=== PATIENT | female | born 1950 | race Caucasian/White ===

== ENCOUNTER → 2024-04-13 08:07 | Day surgery (SDC) | payer MEDICARE, OTHER, SELFPAY ==
[2024-04-13 09:15] VITALS: BMI 34.5
[2024-04-13] MEDS: ELIQUIS 5 MG PO (09:19)
[2024-04-13] MEDS: XOPENEX 1.25 MG INHALANT SOLUTION INH (10:23)
--- NOTE | 2024-04-13 10:27 | ITS.CL.CARDI ---
Construction Analyst - Cardioversion
Cardioversion
Procedure Report:
Date of Procedure:
Procedure: Cardioversion
Indication: Symptomatic atrial fibrillation
Performing Physician: Gerald Cao MD
Technique: The patient was brought to the holding area. Signed informed consent was obtained. A time out was called and performed. The patient was anesthetized by the anesthesia service. Anticoagulation status was reviewed and appropriate. R2 pads
were placed anteriorly and posteriorly. Afer ALICIA revealed no LA appednage thrombus, a 200 J synchronized biphasic shock restored normal sinus rhythm without significant bradycardia.
Conclusion: Uncomplicated cardioversion from atrial fibrillation to sinus rhythm.
Recommendation: Routine post cardioversion care. Continue fci anticoagulation.
[2024-04-13] MEDS: LASIX 20 MG IV (10:46)
== END ==
LOC: CATH 08:07
PROVIDERS: ATTENDING PHYSICIAN Internal Medicine Cardiovascular Disease; FAMILY PHYSICIAN Family Medicine; OTHER PHYSICIAN Nuclear Medicine Nuclear Cardiology
DX: I48.0 Paroxysmal atrial fibrillation (principal); I35.1 Nonrheumatic aortic (valve) insufficiency; I11.0 Hypertensive heart disease with heart failure; I50.9 Heart failure, unspecified; K21.9 Gastro-esophageal reflux disease without esophagitis; G47.33 Obstructive sleep apnea (adult) (pediatric)
CPT/HCPCS: 93312; 93320; 93325; 92960; 93005; 94640

== ENCOUNTER → 2024-05-06 11:02 | Outpatient (REF) | payer MEDICARE, OTHER, SELFPAY | LOC: HWRCS 11:02 | PROVIDERS: ATTENDING PHYSICIAN Nuclear Medicine Nuclear Cardiology; FAMILY PHYSICIAN Family Medicine | DX: I48.0 Paroxysmal atrial fibrillation (principal) | CPT/HCPCS: 93306 ==

== ENCOUNTER 2024-09-12 13:49 | Emergency (ER) | payer MEDICARE, OTHER, SELFPAY ==
[2024-09-12 14:05] VITALS: BP 173/93
[2024-09-12 16:00] VITALS: BMI 34.8
--- NOTE | 2024-09-12 16:24 | ED.GENMED ---
History of Present Illness
General
Chief Complaint: Musculo-Skeletal Complaint
Source: patient
Exam Limitations: none
Time Seen by Provider: 09/12/24 16:08
Nursing documentation reviewed up to this point in time: agreed with
History of Present Illness
History of Present Illness:
Patient is a 74-year-old female who presents to the ER for evaluation of left thumb pain. This morning she got out of her car slipped on ice and fell landing on her left hand thumb. She denies hitting her head she denies neck pain back pain no
other injuries except left thumb pain and swelling. She is on Eliquis. She reports pain radiates up to her wrist area. She did hear back but denies any injury/pain. No other complaints other than her hand/finger pain
Patient is right-hand dominant.
Past History
Past History
ED Past Medical History: Arrthythmia (Paroxysmal atrial fibrillation), CHF, GERD, HTN and Other (Obstructive sleep apnea)
ED Past Surgical History: Appendectomy, Cardiac (A. fib ablation January 2022) and Orthopedic (Bilateral hip replacement)
Social History
Tobacco: Non-smoker
Alcohol: None
Drug: None
Personal:
Living: with family
Employment: Retired
Family History
Family History: Other (Noncontributory)
Review of Systems
Review of Systems
Allergies reviewed?: Yes
All Other Systems: ROS reviewed and negative except as documented in HPI and ROS
Constitutional: Reports no symptoms
Cardiac: Reports no symptoms
ABD/GI: Reports no symptoms; Denies nausea or vomiting
Musculoskeletal: Reports other (left thumb pain /injury ); Denies neck pain or back pain
Skin: Reports no symptoms
Neurological: Denies dizzy, headache or numbness
Psychiatric: Reports no symptoms
Phy Exam
General Physical Exam
General Presentation: no apparent distress
General age: appears stated age
General Skin: warm and dry
General Habitus: normal
General Mental: alert
General Hydration: appears well hydrated
Eye Exam
Eye Exam: PERRL and EOMI
Eye Exam General: PERRL: bilateral and EOM intact: bilateral
Pupil Exam: Bilateral: round and reactive
Neurological Exam
Neurological Exam: alert and oriented x3
Musculoskeletal Exam
Musculoskeletal Exam: other (No obvious head injury on exam no bony cervical or thoracic tenderness patient with left upper extremity swelling to distal phalanx of thumb and proximal phalanx of thumb minimally tender to metacarpal area, no
lacerations normal cap refill, strong pulses, no head injury on exam)
Skin Exam
Skin Exam: normal color and warm/dry
Psychiatric Exam
Psychiatric Exam: normal mood/affect
Course
Orders/Labs/Results
Orders:
Orders
09/12/24 14:13
Thumb/Finger(s) 2 View Lt [CR Finger(s)/thumb Min 2 Vw Lt] Urgent
Comment:
Reason For Exam: fall, pain and swelling
Indicate Which Finger:: Thumb
09/12/24 16:24
Splints/Slings/Crut- Treatment ONCE
Location: Right
Type of Splint: Thimb Spica
09/12/24 16:42
Acetaminophen [Tylenol] 1,000 mg PO NOW STA
Vital Signs
Initial and Last Documented VS:
Initial Vital Signs
Temp Pulse Resp BP Pulse Ox
98.5 F 79 20 173/93 98
09/12/24 14:05 09/12/24 14:05 09/12/24 14:05 09/12/24 14:05 09/12/24 14:05
Last Documented Vital Signs
Temp Pulse Resp BP Pulse Ox
98.5 F 79 20 173/93 98
09/12/24 14:05 09/12/24 14:05 09/12/24 14:05 09/12/24 14:05 09/12/24 14:05
Procedures
Splint Check
Splint checked by provider?: Yes
Circulation/Movement/Sensation post splint application: brisk cap refill and full sensation
MDM/Problems Addressed
Differential Diagnosis Includes:
Not limited to finger contusion sprain versus fracture
MDM/Problems Addressed:
Patient is a 74-year female Barbis slipped and fell injuring her left thumb. She is obvious swelling bruising to the left thumb there is a suspicion for tiny avulsion adjacent to the head of the first metacarpal patient is mildly tender throughout
will place in a thumb spica splint. As she is on Eliquis patient was asked several times and denies hitting her head .denies any headache and has no obvious head injury on exam. Injury occurred several hours ago. Patient is to follow-up with hand
*Radiology
Radiology exam reviewed: radiology read reviewed
*Critical Care Note
Total Time (30-74mins, 75-104mins- exclusive of procedures): Not Applicable
ED Attending Note
-
Portions of this chart may have been created with voice recognition software.� Occasional wrong word or��sound alike� substitutions may have occurred due to the inherent limitations of voice recognition software.
Discharge Plan
Departure
Patient Disposition: Home (Routine Discharge)
Date of Disposition: 09/12/24
Time of Disposition: 16:36
Patient with high blood pressure during this ER visit?: Yes
Covid-19: Not Applicable
Discharge Problem:
Fracture of hand
Instructions: Splint Care, Hand Fracture ED
Prescriptions:
No Action
pantoprazole 40 MG tablet,delayed release (DR/EC)
40 mg PO DAILY
loratadine 10 MG tablet
10 mg PO DAILY
Benazepril Hcl 10 MG Tablet
40 mg PO DAILY
metoprolol succinate 25 MG tablet extended release 24 hr
100 mg PO BID
diltiazem HCl [Cardizem] 120 mg Tablet
120 mg PO DAILY
spironolactone 12.5 MG tablet
50 mg PO DAILY
Rx Instructions:
Take spironolactone 12.5 mg (1/2 of a 25 mg tablet) once a day
Referrals:
Kiran Willams MD [Active] -
Activity Restrictions/Additional Instructions:
As discussed please wear splint until seen and evaluated by orthopedic physician. Call Friday for an appointment as soon as possible. Do not wet splint. You may ice over affected area. Keep elevate is much as possible. You may take Tylenol for
pain,
return if any worsening of symptoms.
Interventions
Interventions:
*Risk Screen - Suicide Last Done: 09/12/24 14:05
*General Assessment Last Done: 09/12/24 16:00
*Neglect/Abuse Screening Last Done: 09/12/24 16:00
ED- Fall Risk Assessment Last Done: 09/12/24 16:05
*ED COVID-19 Vaccine History Last Done: 09/12/24 16:00
*Nursing Disposition Last Done: 09/12/24 17:33
ED-Musculoskeletal Assessment Last Done: 09/12/24 16:03
Discharge Date and Time
Discharge Date/Time: 09/12/24 17:33
Print Language: MALIAN
[2024-09-12] MEDS: TYLENOL 1000 MG PO (16:45)
== END 2024-09-12 17:33 | disposition home or self-care (01) ==
LOC: EMR 13:49
PROVIDERS: EMERGENCY PHYSICIAN Emergency Medicine; FAMILY PHYSICIAN Family Medicine
DX: S60.012A Contusion of left thumb without damage to nail, initial encounter (principal); S62.92XA Unspecified fracture of left hand, initial encounter for closed fracture; W00.0XXA Fall on same level due to ice and snow, initial encounter; I48.0 Paroxysmal atrial fibrillation; I11.0 Hypertensive heart disease with heart failure; I50.9 Heart failure, unspecified; G47.33 Obstructive sleep apnea (adult) (pediatric); K21.9 Gastro-esophageal reflux disease without esophagitis; Z79.01 Long term (current) use of anticoagulants; Z90.49 Acquired absence of other specified parts of digestive tract; Z96.643 Presence of artificial hip joint, bilateral
CPT/HCPCS: 99283; 29125; 73140

== ENCOUNTER → 2025-04-13 08:15 | Outpatient (REF) | payer MEDICARE, OTHER, SELFPAY | LOC: RAD 08:15 | PROVIDERS: ATTENDING PHYSICIAN Family Medicine | DX: M62.81 Muscle weakness (generalized) (principal) | CPT/HCPCS: 93925 ==

== ENCOUNTER 2025-07-23 14:13 | Inpatient (IN) | payer MEDICARE, OTHER, SELFPAY ==
[2025-07-23] VITALS (22 sets, daily range): BP systolic 101–205; BP diastolic 68–113; BMI 36.3; BMI 34.8
[2025-07-23] MEDS: CARDIZEM 20 MG IV (11:24)
[2025-07-23] MEDS: CARDIZEM 125 IV ×2 (11:44→23:51)
[2025-07-23 12:02] LABS: Hematocrit 45.7 % (37.0-47.0); Hemoglobin 15.0 g/dL (12.0-16.0); Mean Corp Hgb Conc. 32.8 g/dL (33.0-37.0); Mean Corpuscular Volume 96.8 fL (81.0-99.0); Nucleated Red Blood Cells % 0 %; Platelet Count 342 10^3/uL (130-400); Red Cell Dist. Width 11.8 % (11.5-14.5)
[2025-07-23 12:15] LABS: ALT (SGPT) 19 U/L (0-35); AST (SGOT) 22 U/L (14-36); Albumin 4.7 g/dl (3.5-5.0); Alkaline Phosphatase 67 U/L (38-126); Blood Urea Nitrogen 28 mg/dl (7-17); Calcium 10.1 mg/dl (8.4-10.2); Carbon Dioxide 20 mmol/L (22-30); Chloride 105 mmol/L (98-107); Glucose 170 mg/dl (70-99); Potassium 6.0 mmol/L (3.5-5.1); Sodium 135 mmol/L (135-145); Total Protein 8.1 g/dl (6.3-8.2); eGFR 52.40
--- NOTE | 2025-07-23 12:51 | ED.GENMED ---
History of Present Illness
<Jesus Loya PA-C - Last Filed: 07/23/25 15:02>
General
Chief Complaint: Cardiac Symptoms
Time Seen by Provider: 07/23/25 11:09
History of Present Illness
History of Present Illness:
74-year-old female with history of paroxysmal A-fib status post ablation presents to the emergency department for evaluation of rapid heart rate and palpitations that began last night. She reports some exertional shortness of breath over the past 3
months as well. Notes that she has frequent palpitations for the past several weeks to several months but has not had these evaluated. Currently denies any chest pain. She is not currently anticoagulated. No recent fevers or chills.
Past History
<Jesus Loya PA-C - Last Filed: 07/23/25 15:02>
Past History
ED Past Medical History: Arrthythmia (Paroxysmal atrial fibrillation), CHF, GERD, HTN and Other (Obstructive sleep apnea)
ED Past Surgical History: Appendectomy, Cardiac (A. fib ablation January 2022) and Orthopedic (Bilateral hip replacement)
Social History
Tobacco: Non-smoker
Alcohol: None
Drug: None
Personal:
Living: with family
Employment: Retired
Family History
Family History: Other (Noncontributory)
Review of Systems
<Jesus Loya PA-C - Last Filed: 07/23/25 15:02>
Review of Systems
Allergies reviewed?: Yes
All Other Systems: ROS reviewed and negative except as documented in HPI and ROS
Phy Exam
<Jesus Loya PA-C - Last Filed: 07/23/25 15:02>
Physical Exam
Physical Exam:
GEN: Well appearing, NAD, WDWN
HEENT: Oral mucosa moist, no scleral icterus
Cardiac: Irregular and tachycardic, no murmur
Lung: No respiratory distress, no tachypnea, lungs clear to auscultation
MSK: No gross deformity or injuries
Skin: Good color, no pallor or jaundice, no rashes
Neuro: AO x3, moves all extremities freely
Psych: Calm, cooperative
Course
<Jesus Loya PA-C - Last Filed: 07/23/25 15:02>
Orders/Labs/Results
Orders:
Orders
07/23/25 10:36
Electrocardiogram (*1) Urgent
Reason for Study: Atrial Fibrillation
EKG- Treatment ONCE
07/23/25 11:06
Diltiazem HCl [Cardizem] 25 mg .ROUTE .STK-MED ONE
07/23/25 11:24
Diltiazem HCl [Cardizem] 20 mg IV NOW STA
07/23/25 11:27
CXR2 [CR Chest - 2 Views ] Urgent
Comment:
Reason For Exam: afib
07/23/25 11:30
Diltiazem 125 mg/125 ml Nss [Cardizem] 125 mg in 125 ml IV PER PROTOCOL
Initial dose in mg/hr, then titrate:: 5
Titrate to keep:: Heart rate 80-100 bpm
Titrate by mg/hr:: 5 mg/hr
Frequency of titrations (minutes):: 15
Maximum dose in mg/hr:: 15
07/23/25 11:31
BNP [NT-proBNP] Urgent
Complete Blood Count/With Diff Urgent
Comprehensive Metabolic Panel Urgent
07/23/25 12:44
Calcium Gluconate 1,000 mg IV NOW STA
Dextrose 50%-Water [Dextrose 50% Syringe] 12.5 grams IV [id number] PRN
Dextrose 50%-Water [Dextrose 50% Syringe] 25 grams IV NOW STA
Insulin Human Regular [Novolin R] 10 units IV NOW STA
07/23/25 12:45
Bedside Glucose PRE IV Insulin- HyperK+ NOW
07/23/25 13:29
Heparin 4,000 units IV NOW STA
Nursing to Place Non Medication Order As Directed
Physician Order: PTT 6 hours after initial start of Heparin infusion
Above order entered?: Yes
07/23/25 13:30
Heparin [id number] Units/250 ml 25,000 units in 250 ml IV PER PROTOCOL
Weight to be used for heparin protocol in kilograms (kg):: 105
Protocol:: Cardiac Tx/Acute Coronary
PTT Goal Range to be used:: PTT 73 to 111 seconds
Order type:: Initial
INITIAL Infusion Dose (UNITS/KG/hr) & then follow protocol:: 15 units/kg/hr
Infusion Dose in UNITS/hr & then follow protocol (UNITS/hr):: 1,500
INFUSION RATE in mL/hr & then follow protocol (mL/hr):: 15
PTT less than or equal to 64 seconds:: Increase rate by 200 units/hr (+ 2 mL/hr)
PTT 64.1 to 72.9 seconds:: Increase rate by 100 units/hr (+ 1 mL/hr)
PTT 73 to 111 seconds:: Target Range. No change in rate.
PTT 111.1 to 130.9 seconds:: Decrease rate by 100 units/hr (- 1 mL/hr)
PTT 131 to 199.9 seconds:: HOLD for 1 hr. Then decrease rate by 200 units/hr (- 2 mL/hr)
PTT greater than or equal to 200 seconds:: HOLD for 2 hrs & Notify Provider. Then decrease by 200 units/hr (-
2 mL/hr)
Lab follow-up:: Each change, PTT q6h until 2 consecutive are therapeutic. Then PTT
daily.
07/23/25 13:42
Admit/Transfer Patient As Directed
Co-Sign Provider:
Level of Care: Inpatient admission
Assign to:: IVU
Physician / Group: wendy vincent
Diagnosis: atrial fib with RVR
Reason for Hospitalization: atrial fib with RVR
Expected length of stay greater than two midnights?: Yes
ELOS- Estimated Length of Stay in days: 3
I certify the patient meets the requirements for IP care: Yes
PRN Pain Medication Management As Directed
May give lesser potent ordered pain med per pt: Yes
preference::
Protocol:: Medication orders for pain may be administered in a
manner that supports deferring to patient preference
when the pt is:
- Requesting an ordered lesser potent pain medication.
Least to most potent pain medications are defined
as: acetaminophen < NSAID < tramadol < opioids
(morphine, oxycodone, hydromorphone).
- Requesting a lesser dose of the same medication IF
ORDERED.
- Requesting a less intrusive route of administration
if both routes are prescribed by the provider (PO <
IV).
07/23/25 13:44
Code Status As Directed
Resuscitation Status: Full Code
07/23/25 13:48
PTT Urgent
Comment: Obtain baseline before beginning heparin infusion if not already collected
07/23/25 14:15
Bedside Glucose POST IV Insulin- HyperK+ Q1HX2,Q2HX2
07/23/25 15:00
Potassium Urgent
Comment: draw 2 hours after regular insulin IV administration
Abnormal Lab Results
07/23/25 07/23/25
11:31 13:04
MCH 31.8 H pg
(27.0-31.0)
MCHC 32.8 L g/dL
(33.0-37.0)
Absolute Monos (auto) 0.9 H 10^3/uL
(0.1-0.6)
Potassium 6.0 H mmol/L
(3.5-5.1)
Carbon Dioxide 20 L mmol/L
(22-30)
BUN 28 H mg/dl
(7-17)
Creatinine 1.1 H mg/dL
(0.6-1.0)
Glucose 170 H mg/dl
(70-99)
POC Glucose 129 H mg/dl
(70-99)
07/23/25 11:31
07/23/25 11:31
Vital Signs
Initial and Last Documented VS:
Initial Vital Signs
Temp Pulse Resp BP Pulse Ox
97.5 F 140 16 205/101 95
07/23/25 10:34 07/23/25 10:34 07/23/25 10:34 07/23/25 10:34 07/23/25 10:34
Last Documented Vital Signs
Temp Pulse Resp BP Pulse Ox
97.5 F 98 28 112/93 94
07/23/25 10:34 07/23/25 14:45 07/23/25 14:45 07/23/25 14:45 07/23/25 14:45
<Maksim Godwin, DO - Last Filed: 07/23/25 15:06>
Orders/Labs/Results
Orders:
Orders
07/23/25 10:36
Electrocardiogram (*1) Urgent
Reason for Study: Atrial Fibrillation
EKG- Treatment ONCE
07/23/25 11:06
Diltiazem HCl [Cardizem] 25 mg .ROUTE .STK-MED ONE
07/23/25 11:24
Diltiazem HCl [Cardizem] 20 mg IV NOW STA
07/23/25 11:27
CXR2 [CR Chest - 2 Views ] Urgent
Comment:
Reason For Exam: afib
07/23/25 11:30
Diltiazem 125 mg/125 ml Nss [Cardizem] 125 mg in 125 ml IV PER PROTOCOL
Initial dose in mg/hr, then titrate:: 5
Titrate to keep:: Heart rate 80-100 bpm
Titrate by mg/hr:: 5 mg/hr
Frequency of titrations (minutes):: 15
Maximum dose in mg/hr:: 15
07/23/25 11:31
BNP [NT-proBNP] Urgent
Complete Blood Count/With Diff Urgent
Comprehensive Metabolic Panel Urgent
07/23/25 12:44
Calcium Gluconate 1,000 mg IV NOW STA
Dextrose 50%-Water [Dextrose 50% Syringe] 12.5 grams IV [id number] PRN
Dextrose 50%-Water [Dextrose 50% Syringe] 25 grams IV NOW STA
Insulin Human Regular [Novolin R] 10 units IV NOW STA
07/23/25 12:45
Bedside Glucose PRE IV Insulin- HyperK+ NOW
07/23/25 13:29
Heparin 4,000 units IV NOW STA
Nursing to Place Non Medication Order As Directed
Physician Order: PTT 6 hours after initial start of Heparin infusion
Above order entered?: Yes
07/23/25 13:30
Heparin [id number] Units/250 ml 25,000 units in 250 ml IV PER PROTOCOL
Weight to be used for heparin protocol in kilograms (kg):: 105
Protocol:: Cardiac Tx/Acute Coronary
PTT Goal Range to be used:: PTT 73 to 111 seconds
Order type:: Initial
INITIAL Infusion Dose (UNITS/KG/hr) & then follow protocol:: 15 units/kg/hr
Infusion Dose in UNITS/hr & then follow protocol (UNITS/hr):: 1,500
INFUSION RATE in mL/hr & then follow protocol (mL/hr):: 15
PTT less than or equal to 64 seconds:: Increase rate by 200 units/hr (+ 2 mL/hr)
PTT 64.1 to 72.9 seconds:: Increase rate by 100 units/hr (+ 1 mL/hr)
PTT 73 to 111 seconds:: Target Range. No change in rate.
PTT 111.1 to 130.9 seconds:: Decrease rate by 100 units/hr (- 1 mL/hr)
PTT 131 to 199.9 seconds:: HOLD for 1 hr. Then decrease rate by 200 units/hr (- 2 mL/hr)
PTT greater than or equal to 200 seconds:: HOLD for 2 hrs & Notify Provider. Then decrease by 200 units/hr (-
2 mL/hr)
Lab follow-up:: Each change, PTT q6h until 2 consecutive are therapeutic. Then PTT
daily.
07/23/25 13:42
Admit/Transfer Patient As Directed
Co-Sign Provider:
Level of Care: Inpatient admission
Assign to:: IVU
Physician / Group: wendy vincent
Diagnosis: atrial fib with RVR
Reason for Hospitalization: atrial fib with RVR
Expected length of stay greater than two midnights?: Yes
ELOS- Estimated Length of Stay in days: 3
I certify the patient meets the requirements for IP care: Yes
PRN Pain Medication Management As Directed
May give lesser potent ordered pain med per pt: Yes
preference::
Protocol:: Medication orders for pain may be administered in a
manner that supports deferring to patient preference
when the pt is:
- Requesting an ordered lesser potent pain medication.
Least to most potent pain medications are defined
as: acetaminophen < NSAID < tramadol < opioids
(morphine, oxycodone, hydromorphone).
- Requesting a lesser dose of the same medication IF
ORDERED.
- Requesting a less intrusive route of administration
if both routes are prescribed by the provider (PO <
IV).
07/23/25 13:44
Code Status As Directed
Resuscitation Status: Full Code
07/23/25 13:48
PTT Urgent
Comment: Obtain baseline before beginning heparin infusion if not already collected
07/23/25 14:15
Bedside Glucose POST IV Insulin- HyperK+ Q1HX2,Q2HX2
07/23/25 15:00
Potassium Urgent
Comment: draw 2 hours after regular insulin IV administration
Abnormal Lab Results
07/23/25 07/23/25
11: 13:04
MCH 31.8 H pg
(27.0-31.0)
MCHC 32.8 L g/dL
(33.0-37.0)
Absolute Monos (auto) 0.9 H 10^3/uL
(0.1-0.6)
Potassium 6.0 H mmol/L
(3.5-5.1)
Carbon Dioxide 20 L mmol/L
(22-30)
BUN 28 H mg/dl
(7-17)
Creatinine 1.1 H mg/dL
(0.6-1.0)
Glucose 170 H mg/dl
(70-99)
POC Glucose 129 H mg/dl
(70-99)
07/23/25 11:31
07/23/25 11:31
Vital Signs
Initial and Last Documented VS:
Initial Vital Signs
Temp Pulse Resp BP Pulse Ox
97.5 F 140 16 205/101 95
07/23/25 10:34 07/23/25 10:34 07/23/25 10:34 07/23/25 10:34 07/23/25 10:34
Last Documented Vital Signs
Temp Pulse Resp BP Pulse Ox
97.5 F 98 28 112/93 94
07/23/25 10:34 07/23/25 14:45 07/23/25 14:45 07/23/25 14:45 07/23/25 14:45
Shelbylt;Jesus Loya PA-C - Last Filed: 07/23/25 15:02>
MDM/Problems Addressed
MDM/Problems Addressed:
Patient's significant hyperkalemia may be contributory, this was certainly secondary to her LETICIA inhibitor and spironolactone use. Given insulin dextrose as well as calcium for myocardial stimulation, maintained on Cardizem drip for rate control and
will be admitted to the hospitalist service for further management
<Jesus Loya PA-C - Last Filed: 07/23/25 15:02>
*Pulse Oximetry
SaO2: 96
Oxygen Mode of Delivery: Room air
Patient hypoxic: no
*Critical Care Note
Total Time (30-74mins, 75-104mins- exclusive of procedures): 35 minutes
comment:
Critical care time: 35 minutes
Critical care time was exclusive of: Separately billable procedures, treating other patients, and teaching time
Critical care was necessary to treat or prevent imminent or life-threatening deterioration of the following conditions: A-fib/hyperkalemia
Critical care time spent personally by me on the following activities:
[x] Review of old charts
[x] Obtaining history from patient or surrogate
[x] Ordering and review of the laboratory studies
[x] Ordering and review of radiographic studies
[x] Ordering and performing treatments and interventions
[x] Patient patient's response to treatment
[x] Development of treatment plan with patient or surrogate
ED Attending Note
<Jesus Loya PA-C - Last Filed: 07/23/25 15:02>
-
Portions of this chart may have been created with voice recognition software.� Occasional wrong word or��sound alike� substitutions may have occurred due to the inherent limitations of voice recognition software.
<Maksim Godwin, - Last Filed: 07/23/25 15:06>
ED Attending Note
Patient seen and examined by attending physician: Yes
ED Attending Note:
I reviewed and agree with history and treatment plan by Damien Loya PA-C. My exam revealed send
Female with cough, rapid atrial fibrillation vital signs stable. Chest x-ray no acute findings admit to hospitalist for further treatment of hyperkalemia and rapid atrial fibrillation.
Discharge Plan
Departure
Patient Disposition: Admit
Date of Disposition: 07/23/25
Time of Disposition: 13:22
Admit to: IMU
Presentation/result/management discussed w/ accepting MD/DO: Hospitalist
Discharge Problem:
Atrial fibrillation with RVR, Acute hyperkalemia
Interventions
Interventions:
*Neglect/Abuse Screening Last Done: 07/23/25 10:36
*ED COVID-19 Vaccine History Last Done: 07/23/25 13:12
*ED Influenza Vaccine History Last Done: 07/23/25 13:12
*Risk Screen - Suicide (C-SSRS) Last Done: 07/23/25 10:36
ED- Pulmonary Assessment Last Done: 07/23/25 13:11
ED- Cardiac Assessment Last Done: 07/23/25 13:11
[2025-07-23 13:06] LABS: Glucose - Point of Care 129 mg/dl (70-99)
[2025-07-23] MEDS: CALCIUM GLUCONATE 1000 MG IV (13:15)
[2025-07-23] MEDS: DEXTROSE 50% SYRINGE 25 GRAMS IV (13:17)
[2025-07-23] MEDS: NOVOLIN R 10 UNITS IV (13:18)
--- NOTE | 2025-07-23 13:23 | HPS.HSE ---
Family Physician
-
Family Physician: Jeb Qiu
Chief Complaint
-
Palpitation and rapid heart rate
History of Present Illness
74-year-old female with history of paroxysmal A-fib status post ablation, hypertension, GERD presents to the emergency department for evaluation of rapid heart rate and palpitations that began last night. Patient stated heart rate in 140s. Patient
complained of short of breath which is worse with exertion for past few weeks. Patient denied any lower extremities edema, weight gain. Patient denied any headache, dizziness syncope. Patient denied any fever, chills, congestion. She has chronic
cough. Patient denied any abdominal pain, nausea, vomiting or diarrhea. patient denied dysuria and hematuria.
Upon arrival A-fib with RVR. Patient was initiated on Cardizem drip. Admitted for further management
Medical History
Past Medical History
Past Medical History: Reports Other
Additional Past Medical History:
Hypertension, A-fib, obstructive sleep apnea, cardiomegaly, lumbar radiculopathy, heart murmur, sleep apnea, migraine anxiety, osteoarthritis, CHF
Past Surgical History: Reports Other
Additional Past Surgical History:
Total abdominal hysterectomy, bilateral VERONICA, appendectomy, cardiac ablation
Social History
Tobacco: Non-smoker
Alcohol: None
Drug: None
Personal:
Living: With Family
Family History
Family History: Not pertinent
Allergies / Home Medications
Allergies reflects when Allergies were last updated in [facility].
Home Medications with original date entered in [facility]
Allergy/Medication List:
Allergies
Allergy/AdvReac Type Severity Reaction Status Date / Time
meperidine (From Demerol) AdvReac DOESN'T Verified 09/12/24 14:05
WORK
propoxyphene (From AdvReac Nausea Verified 09/12/24 14:05
Darvocet-N)
Home Medications
loratadine 10 mg tablet 10 mg PO DAILY Allergies 09/06/21
pantoprazole 40 mg tablet,delayed release 40 mg PO DAILY Gastrointestinal issue 09/06/21
Benazepril Hcl 40 mg PO DAILY htn 01/04/22
metoprolol succinate 25 mg tablet,extended release 24 hr 100 mg PO BID htn 01/04/22
diltiazem HCl 120 mg tablet (Cardizem) 120 mg PO DAILY afib 04/13/24
spironolactone 25 mg tablet 50 mg PO DAILY Heart Failure 04/13/24
Review of Systems
-
Constitutional: Reports No Symptoms
EENT: Reports No Symptoms
Respiratory: Reports Trouble Breathing
Cardiac: Reports Palpitations
Abdomen/GI: Reports No Symptoms
: Reports No Symptoms
Musculoskeletal: Reports No Symptoms
Skin: Reports No Symptoms
Neurological: Reports No Symptoms
Endocrine: Reports No Symptoms
Hematologic/Lymphatic: Reports No Symptoms
Psych: Reports No Symptoms
Physical Exam
Vital Signs
Vital Signs
Temp Pulse Resp BP Pulse Ox
97.5 F 135 22 141/113 96
07/23/25 10:34 07/23/25 11:00 07/23/25 11:00 07/23/25 10:58 07/23/25 12:54
Physical Exam
General: Well Developed, Well Nourished and No Apparent Distress
HEENT: NormoCephalic, Moist mucous membranes and Atraumatic
Respiratory: Decreased Breath Sounds
Cardiac: S1/S2, Irregular Rhythm and Tachycardia; No Murmur or Rub
GI: Soft, Non Tender, Non Distended and Normal Bowel Sounds; No Organomegaly
Rectal: Deferred by Provider
Musculoskeletal: No Clubbing, No Cyanosis and No Edema
Skin: No Rash
Neuro: AO x 3 and Nonfocal/grossly intact
Psych: Calm
Laboratory Results
-
07/23/25 11:31
Laboratory Results
Total Bilirubin 0.5 mg/dl (0.2-1.3) 07/23/25 11:31
AST 22 U/L (14-36) 07/23/25 11:31
ALT 19 U/L (0-35) 07/23/25 11:31
Alkaline Phosphatase 67 U/L (38-126) 07/23/25 11:31
Data Reviewed
-
Diagnostic Radiology: Report Reviewed by me
Lab Data: Labs Reviewed by me
Impression/Plan
-
# Rapid atrial fibrillation
- Cardizem drip continue
-Metoprolol
-heparin continued
- Echo with EF of 55-6
- Cardiology consulted
# Hyperkalemia secondary to spironolactone
- K6.0
- Patient received a dose of insulin, dextrose, calcium
- Continue to monitor BMP
# CKD stage IIIa
- Creatinine 1.1, continue to monitor
#HTN
-BP stable
- Hold Benazepril
- Hold spironolactone
#. GERD
- Pantoprazole
#IVÁN
-CPAP continue
#DVT prophylaxis
-Heparin
# CODE STATUS
-full code
--- NOTE | 2025-07-23 13:26 | W.PN.UPDATE ---
Update Note
Progress Note Update
This note serves as an addendum to the H&P by pattern maker Mariah LISA�
HPI�
71yo F
PH of Prx AF, CV x2, s/p ablation, HTN,IVÁN, CPAP HS
- for evaluation of rapid heart rate and palpitations that began last night.
- some exertional shortness of breath over the past 3 months as well.
- Notes that she has frequent palpitations for the past several weeks to several months but has not had these evaluated.
- Currently denies any chest pain.
- not currently anticoagulated.
- No recent fevers or chills.
K 6 at ER s/p D50 + 10U of insulin + Ca Gluconate
EKG - in AF w RVR
Relevant VS
Temp Pulse Resp BP Pulse Ox
97.5 F 126 28 156/73 97
07/23/25 10:34 07/23/25 13:16 07/23/25 13:16 07/23/25 13:16 07/23/25 13:16
PE
Gen: NAD
HEENT: Not icteric
Neck: supple
Lungs: No respiratory distress, no tachypnea, lungs clear to auscultation
Cor: iregular
Abdomen:�soft benign
INDUSTRIAL SERVICER: AAO3
MS: no edema
Psych: calm
Relevant Data
07/23/25 07/23/25 07/23/25
11:31 13:29 15:15
WBC 10.1
Hgb 15.0
Plt Count 342
APTT Pending
Sodium 135
Potassium 6.0 H Pending
Carbon Dioxide 20 L
BUN 28 H
Creatinine 1.1 H
eGFR 52.40
Glucose 170 H
EKG report
ATRIAL FIBRILLATION WITH RAPID VENTRICULAR RESPONSE
LEFT AXIS DEVIATION
NONSPECIFIC ST ABNORMALITY
ABNORMAL ECG
WHEN COMPARED WITH ECG OF 13-Apr-2024 10:15,
ATRIAL FIBRILLATION HAS REPLACED SINUS RHYTHM
VENT. RATE HAS INCREASED by [address] NOW DEPRESSED IN ANTERIOR LEADS
T WAVE INVERSION NO LONGER EVIDENT IN ANTEROLATERAL LEADS
05/06/24 TTE
1. Normal left ventricular size and function, ejection fraction 55-60%
2. Mitral annular calcification, thickened mitral leaflets, trace mitral
regurgitation and dilated left atrium
3. Aortic sclerosis without stenosis or regurgitation
4. Normal right heart, pulmonary artery systolic pressure 35 mmHg
ASSESSMENT & PLAN
Hyperkalemia
Mild CHAZ
- s/p D50 + 10U of insulin + Ca Gluconate
- FU K in 2-3 hrs
- Hold Spironolactone
- Hold Benazepril
- FU BMP in AM
Recurrent Prx AF with RVR
HX Prx AF
S/P CV
S/P ablation
ECHO : EF 55- 60 , Normal right heart, pulmonary artery systolic pressure 35 mmHg
( P card Dr Cuba)
- Heparin gtt
- Diltiazem gtt to titrate
- c/w PO Metoprol XL
- DCA acrd consult
DVT Px: Heaprin gtt
Full code
IVU
[2025-07-23] MEDS: HEPARIN 4000 UNITS IV (14:02)
[2025-07-23] MEDS: HEPARIN 25000 UNITS/250 ML IV (14:02)
[2025-07-23 14:24] LABS: APTT 38.2 Sec (23.4-35.0)
[2025-07-23 14:50] LABS: Glucose - Point of Care 141 mg/dl (70-99)
[2025-07-23 15:59] LABS: Potassium 5.0 mmol/L (3.5-5.1)
--- NOTE | 2025-07-23 16:35 | PTCARENOTE ---
Rec'd Pt 1615 from ED, A,A+Ox3, in A-fib on monitor at rate 110-120's. Pt on cardizem drip @10 mg/hr and Heparin drip at 15 ml/hr. Denies pain.
[2025-07-23] MEDS: TOPROL XL 100 MG PO (19:50)
--- NOTE | 2025-07-23 20:05 | PTCARENOTE ---
No change in assessment noted from 1614. VSS.
[2025-07-23 20:08] LABS: Glucose - Point of Care 130 mg/dl (70-99)
[2025-07-23 20:29] LABS: APTT 133.9 Sec (23.4-35.0)
--- NOTE | 2025-07-23 20:53 | PTCARENOTE ---
obtained accucheck at 1819= [id number]. This result is visible in the accucheck review results but did not cross over in to [employer].
[2025-07-23 22:48] LABS: Glucose - Point of Care 236 mg/dl (70-99)
[2025-07-24] VITALS (10 sets, daily range): BP systolic 108–144; BP diastolic 67–97; BMI 34.9
[2025-07-24 04:37] LABS: Hematocrit 43.6 % (37.0-47.0); Hemoglobin 14.5 g/dL (12.0-16.0); Mean Corp Hgb Conc. 33.3 g/dL (33.0-37.0); Mean Corpuscular Volume 94.8 fL (81.0-99.0); Platelet Count 299 10^3/uL (130-400); Red Cell Dist. Width 11.9 % (11.5-14.5)
[2025-07-24 04:56] LABS: APTT 70.4 Sec (23.4-35.0)
[2025-07-24 05:02] LABS: Blood Urea Nitrogen 29 mg/dl (7-17); Calcium 9.9 mg/dl (8.4-10.2); Carbon Dioxide 23 mmol/L (22-30); Chloride 107 mmol/L (98-107); Estimated Creatinine Clearance 49 ml/min; Glucose 111 mg/dl (70-99); HDL Cholesterol 53 mg/dl; LDL Cholesterol, Calculated 130 mg/dl; Potassium 5.4 mmol/L (3.5-5.1); Sodium 137 mmol/L (135-145); Very Low Density Lipoprotein 27 mg/dl (0-30); eGFR 47.21
[2025-07-24] MEDS: PROTONIX 40 MG PO (08:10)
[2025-07-24] MEDS: TOPROL XL 100 MG PO ×2 (08:10→19:42)
--- NOTE | 2025-07-24 09:23 | PTCARENOTE ---
Pt WYNNE, and even states she feels SOB at rest for the past 2-3 wks. O2 sat 97% on RA. Pt has occasional harsh cough which is productive at times for clear to white sputum.
[2025-07-24] MEDS: HEPARIN 25000 UNITS/250 ML IV (09:38)
[2025-07-24] MEDS: LOKELMA 10 GRAM PO ×2 (10:42→12:32)
[2025-07-24 12:32] LABS: APTT 110.5 Sec (23.4-35.0)
[2025-07-24 12:36] LABS: COVID-19 Antigen Negative (Negative)
--- NOTE | 2025-07-24 14:16 | W.PN.HOSP.TC ---
Addendum entered and electronically signed by Yifan Dumont MD 07/24/25 14:22:
Total Critical Care Time 51 minutes. I was immediately available to the patient and staff. I personally examined, reviewed labs, diagnostic images/reports, interpretations, treatment plans, discussed patient care with other providers and family
or caregivers (if patient is unable to make decisions), entered orders as appropriate and documented the medical record.
Original Note:
Today's Communication/Plan
-
await Cards recs
cont dilt ggt, hep ggt
ECHO in AM if needed
Assessment / Plan
Assessment / Plan
Physical Exam
General: Well Developed, Well Nourished and No Apparent Distress
HEENT: NormoCephalic, Moist mucous membranes and Atraumatic
Respiratory: Decreased Breath Sounds
Cardiac: S1/S2, Irregular Rhythm and Tachycardia; No Murmur or Rub
GI: Soft, Non Tender, Non Distended and Normal Bowel Sounds; No Organomegaly
Rectal: Deferred by Provider
Musculoskeletal: No Clubbing, No Cyanosis and No Edema
Skin: No Rash
Neuro: AO x 3 and Nonfocal/grossly intact
Psych: Calm
# Afib with RVR
- Cardizem drip continue
-Metoprolol
-heparin continued
- Echo with EF of 55-60%
- Cardiology consulted - awaiting recs
# Hyperkalemia
-lokelma x 2 today
-F/u BMP tomorrow
-Stop lokelma
# CKD stage IIIa
- Creatinine 1.1, continue to monitor
#HTN
-BP stable
- Hold Benazepril
- Hold spironolactone
#. GERD
- Pantoprazole
#IVÁN
-CPAP continue
#DVT prophylaxis
-Heparin
# CODE STATUS
-full code
Anticipated Discharge: 24 - 48 hours
Subjective/Interval History
-
Date of Service: July 24, 2025
Remains in A-fib
Objective Data
-
Labs:
Laboratory Results
07/24/25 07/24/25
04:14 12:06
WBC 9.7
Hgb 14.5
Hct 43.6
Plt Count 299
APTT 70.4 H 110.5 H
Sodium 137
Potassium 5.4 H
Chloride 107
Carbon Dioxide 23
BUN 29 H
Creatinine 1.2 H
Glucose 111 H
Calcium 9.9
Vital Signs:
Vital Signs
Temp Pulse Resp BP Pulse Ox
98.1 F 91 20 113/71 95
07/24/25 11:34 07/24/25 09:45 07/24/25 11:34 07/24/25 07:19 07/24/25 11:34
Review of Systems
-
History Source: Patient
All other systems: Not reviewed unless documented
Data Reviewed
-
Diagnostic Radiology: Report Reviewed by me
Labs: Labs Reviewed by me
--- NOTE | 2025-07-24 16:31 | CON.CAR ---
Consultation
Consultation Request
Date/Time Consultation Requested: July 23, 2025
Date/Time Consultation Performed: July 24, 2025
Requesting Provider: Hospitalist
Performing Provider: Dr. Jeb Staples
Reason for Consultation: Atrial fibrillation with rapid ventricular rates
Medical History
-
Chief Complaint: Palpitations and shortness of breath
History of Present Illness:
She presents to the emergency department July 23, 2025 with progressive shortness of breath over the course of the past 2 weeks as well as sensation of rapid heart beating and palpitations that she noted the night prior to ER presentation. In
the emergency department she is found to be in atrial fibrillation with a rapid ventricular rate. She was started on intravenous Cardizem for rate control and admitted.
Cardiology is consulted for further evaluation and management
Of note, on presentation hyperkalemic with a potassium of 6.0
proBNP 807
Chest x-ray no infiltrate or effusion no pulmonary edema
She has a known history of atrial fibrillation having undergone EP study and ablation January 04, 2022. Subsequent recurrences requiring cardioversion. Most recently underwent ALICIA cardioversion April 13, 2024. Additionally she has a history of
obstructive sleep apnea treated with CPAP, hypertension.
She decided to self discontinue oral anticoagulation against medical advice in 2023
Past medical history:
Atrial fibrillation, recurrent, prior ablation in 2021 last cardioverted 2023
She decided to self discontinue oral anticoagulation against medical advice in 2023
CHADSVASc = 4 (HTN, Age, F)
Chronic kidney disease stage III AA
Hypertension
Gastroesophageal reflux disease
Obstructive sleep apnea
Social History
Tobacco: Non-Smoker
Alcohol: None
Drug: None
Personal:
Living: With Family
Allergies / Home Medications
Allergy/AdvReac Type Severity Reaction Status Date / Time
meperidine (From Demerol) AdvReac DOESN'T Verified 09/12/24 14:05
WORK
propoxyphene (From AdvReac Nausea Verified 09/12/24 14:05
Darvocet-N)
�Medication �Instructions �Recorded �Confirmed �Type
loratadine 10 mg tablet 10 mg PO DAILY Allergies 09/06/21 07/23/25 History
pantoprazole 40 mg tablet,delayed 40 mg PO DAILY Gastrointestinal 09/06/21 07/23/25 History
release issue
Benazepril Hcl 40 mg PO DAILY htn 01/04/22 07/23/25 History
metoprolol succinate 25 mg 100 mg PO BID htn 01/04/22 07/23/25 History
tablet,extended release 24 hr
diltiazem HCl 120 mg tablet 120 mg PO DAILY afib 04/13/24 07/23/25 History
(Cardizem)
spironolactone 25 mg tablet 50 mg PO DAILY Heart Failure 04/13/24 07/23/25 History
Review of Systems
-
History Source: Patient
All other systems: Negative unless noted
Constitutional: No Symptoms
EENT: No Symptoms
Respiratory: Trouble Breathing
Cardiac: Palpitations
Abdomen/GI: No Symptoms
: No Symptoms
Musculoskeletal: No Symptoms
Skin: No Symptoms
Neurological: No Symptoms
Endocrine: No Symptoms
Hematologic/Lymphatic: No Symptoms
Physical Exam
Vital Signs
Temp Pulse Resp BP Pulse Ox
99 F 107 20 114/72 96
07/24/25 14:39 07/24/25 15:15 07/24/25 14:39 07/24/25 14:40 07/24/25 14:39
Lab Results
07/24/25 04:14
07/24/25 04:14
Rrr-O-Cjumzkkbozy Pept 807 pg/ml 07/23/25 11:31
Physical Exam
General: Well Developed, Well Nourished, No Apparent Distress and Comfortable
HEENT: Normocephalic, Anicteric and Moist Mucous Membranes
Respiratory: Clear and Non Labored Respirations
Cardiac: S1/S2 (Normal S1 and S2, no S3 no S4.) and Irregular Rhythm
Breast: Deferred by me
GI: Non Tender, Non Distended and Normal Bowel Sounds
Rectal: Deferred by Provider
Musculoskeletal: No Clubbing, No Cyanosis and No Edema
Skin: Warm and Dry
Neuro: Awake, Alert, Oriented and AO x 3
Psych: Calm
Impression / Plan
-
Assessment/plan:
Atrial fibrillation, recurrent, prior ablation in 2021 last cardioverted 2023
She decided to self discontinue oral anticoagulation against medical advice in 2023
CHADSVASc = 4 (HTN, Age, F)
Hyperkalemia
Chronic kidney disease stage III AA
Hypertension
Gastroesophageal reflux disease
Obstructive sleep apnea
Echocardiogram 05/06/2024:
1. Normal left ventricular size and function, ejection fraction 55-60%
2. Mitral annular calcification, thickened mitral leaflets, trace mitral
regurgitation and dilated left atrium
3. Aortic sclerosis without stenosis or regurgitation
4. Normal right heart, pulmonary artery systolic pressure 35 mmHg
Regarding atrial fibrillation
Recurrent atrial fibrillation, symptomatic and rates rapid currently on intravenous Cardizem for rate control
Maintain oral metoprolol succinate 100 mg p.o. twice daily
Initiate Cardizem CD 60 mg p.o. every 6 and uptitrate as we try to gain rate control on oral Cardizem and wean then stop intravenous Cardizem
Elevated [id number] score of 4.
Patient now agreeable to oral anticoagulation
Discontinue heparin and we can start Eliquis 5 mg p.o. twice daily immediately.
Check echocardiogram in the morning
Focus this hospital stay will be rate control and when she has been adequately anticoagulated for at least 30 days plan for cardioversion as well as consideration for antiarrhythmic drug therapy and/or redo ablation
Regarding hyperkalemia
Uncertain why she developed hyperkalemia. She tells me she has been on stable medical therapy and has not added any salt substitutes or other supplements.
Agree with stopping spironolactone
May then need alternative antihypertensive drug therapy
Total time spent today was 78 minutes in preparing to see the patient, seeing the patient and coordination of care. This included review of recent laboratory evaluations, cardiact testing, imaging studies, primary care rtecords, specialty
consultations, hospital records, as well as personally interviewing and examining the patient, which included discussion of their tests, review/ordering medications, and communicating with other healthcare professionals and also treatment planning
as well as counseling.
Total time does not include separately billed tests performed on this date of service.
Data Reviewed
-
EKG: Tracing Personally Visualized and interpreted
Radiology: Image Personally Visualized and interpreted
Medical Tests (Nuc Med, Echo etc): Report Reviewed by me
Labs: Labs Reviewed by me and Discussed with Patient
Old Records: Reviewed
[2025-07-24] MEDS: ELIQUIS 5 MG PO (17:12)
[2025-07-24] MEDS: CARDIZEM 60 MG PO ×2 (17:13→23:39)
[2025-07-24] MEDS: TYLENOL 650 MG PO (19:42)
[2025-07-25] VITALS (10 sets, daily range): BP systolic 93–147; BP diastolic 50–106
--- NOTE | 2025-07-25 02:49 | PTCARENOTE ---
Rec'd pt at change of shift. PT AAO*3, VSS, and pt Afib with HR in the 90's on tele monitor. Pt with Cardizem infusing as ordered. Pt with HR in the 120's and WYNNE at baseline. Instructed pt to call for assistance before ambulating and pt
verbalized understanding. Pt now resting with call jack in reach. See MAR and flowchart for full pt care and assessment.
[2025-07-25 04:41] LABS: Hematocrit 40.8 % (37.0-47.0); Hemoglobin 13.6 g/dL (12.0-16.0); Mean Corp Hgb Conc. 33.3 g/dL (33.0-37.0); Mean Corpuscular Volume 92.5 fL (81.0-99.0); Platelet Count 267 10^3/uL (130-400); Red Cell Dist. Width 11.9 % (11.5-14.5)
[2025-07-25 05:16] LABS: Blood Urea Nitrogen 31 mg/dl (7-17); Calcium 9.5 mg/dl (8.4-10.2); Carbon Dioxide 23 mmol/L (22-30); Chloride 106 mmol/L (98-107); Estimated Creatinine Clearance 54 ml/min; Glucose 106 mg/dl (70-99); Magnesium 2.1 mg/dl (1.6-2.3); Potassium 4.9 mmol/L (3.5-5.1); Sodium 136 mmol/L (135-145); eGFR 52.40
--- NOTE | 2025-07-25 08:02 | W.PN.CARDCBS ---
Addendum entered and electronically signed by Kurt Hudson MD 07/25/25 09:27:
I saw and examined the patient.
The LEAD SUSTAINABILITY SPECIALIST or PA's note was reviewed and I agree with the note.
Comment: General: Well developed, well nourished in NAD.
Neck: Supple, no JVD, HJR, carotids +2 B/L, no bruits bilaterally.
Heart: Non displaced PMI, irregular, no murmurs, No S3, S4, no rubs.
Lungs: Scattered rhonchi
Extremities: No clubbing, cyanosis or edema bilaterally.
Neuro: Grossly nonfocal, awake, alert and oriented x3.
Remains in A-fib with poorly controlled rates. Will add amiodarone. Will plan on ALICIA/cardioversion in a.m. given poor rate control. She does note palpitations
Original Note:
Today's Communication / Plan
-
Continue cardizem, Toprol
Start amiodarone 400mg TID
Continue Eliquis 5mg BID
For possible ALICIA/CV in AM
NPO after midnight.
Impression / Plan
-
PCP: Dr. Qiu
Franchise Sales Director: Dr. Cuba
Impression:
Presented with palpitations, elevated HR
Paroxysmal atrial fibrillation w/ RVR
s/p successful ALICIA/CV 09/07/21
s/p PVI 01/04/22
Off OAC since 2023 per patient choice
Hyperkalemia
CM, EF previously 30-35%
Chronic HFrEF
HTN
HLD
IÁVN on CPAP
CKD 3a
Anxiety
Echo 05/06/2024: EF 55-60%, trace MR, aortic sclerosis without stenosis, estimated PAP 35 mmHg
Echo 07/25/2025: Study pending
Plan:
-Presented with palpitations, elevated HR. Found to be in recurrent atrial fibrillation.
-Started on IV cardizem gtt. Stopped overnight 07/24. HRs elevated this AM into the 140s.
-On Cardizem 60mg QID and Toprol 100mg BID. BP borderline, so will start amiodarone 400mg TID for additional rate control.
-If remains in afib overnight, would plan for ALICIA/CV in AM. NPO after midnight.
-Now back on Eliquis 5mg BID as of 07/24. Previously had self discontinued in 2023.
-Echo pending. Prior echo in 2023 with preserved EF.
-Hyperkalemia noted on arrival with K of 6.0. Improved 07/25, down to 4.9. Remain off spironolactone
Progress Note - Franchise Sales Director
Subjective
Date of Service: July 25, 2025
Still w/ elevated HRs, especially w/ exertion.
Objective
Labs:
07/25/25 04:01
07/25/25 04:01
Labs
Hgb 13.6 g/dL (12.0-16.0) 07/25/25 04:01
Hct 40.8 % (37.0-47.0) 07/25/25 04:01
Plt Count 267 10^3/uL (130-400) 07/25/25 04:01
APTT Cancelled 07/24/25 18:40
Sodium 136 mmol/L (135-145) 07/25/25 04:01
Potassium 4.9 mmol/L (3.5-5.1) 07/25/25 04:01
BUN 31 mg/dl (7-17) H 07/25/25 04:01
Creatinine 1.1 mg/dL (0.6-1.0) H 07/25/25 04:01
Glucose 106 mg/dl (70-99) H 07/25/25 04:01
Vital Signs and I&O:
Vital Signs
Temp Pulse Resp BP Pulse Ox
98.2 F 84 20 121/73 95
07/25/25 07:26 07/25/25 03:52 07/25/25 07:26 07/24/25 23:40 07/25/25 07:26
Vital Signs
Temp Pulse Resp BP Pulse Ox
98.2 F 84 20 121/73 95
07/25/25 07:26 07/25/25 03:52 07/25/25 07:26 07/24/25 23:40 07/25/25 07:26
Intake & Output
07/23/25 07/24/25 07/25/25 07/26/25
06:59 06:59 06:59 06:59
Intake Total 480 / 480
Balance 480 / 480
Physical Exam
Physical Exam
GEN: No distress, awake, alert, oriented x3
HEENT: supple, anicteric, mmm
LUNGS: CTA b/l, no wheezes/rales
CV: irreg, S1/S2, no murmur
EXT: No clubbing, cyanosis, or edema
NEURO: Gross non-focal
SKIN: Warm, dry, no rash
[2025-07-25] MEDS: CARDIZEM 60 MG PO ×4 (09:31→21:31)
[2025-07-25] MEDS: PROTONIX 40 MG PO (09:31)
[2025-07-25] MEDS: TOPROL XL 100 MG PO ×2 (09:32→19:49)
[2025-07-25] MEDS: ELIQUIS 5 MG PO ×2 (09:32→19:49)
--- NOTE | 2025-07-25 10:22 | W.PN.HOSP.TC ---
Today's Communication/Plan
-
Started on amiodarone
Continue with beta-millie and calcium channel millie
Continue to hold LETICIA inhibitors and spironolactone
Check urine analysis for albuminuria
Follow BMP
Assessment / Plan
Assessment / Plan
# Afib with RVR
# History of paroxysmal fibrillation on prior ablation
- Remains with elevated heart rate
- Cardiology input noted-goal is for rate control and initiation of anticoagulation. Amiodarone added for rate control. Plan for ALICIA cardioversion in a.m. if remains with poor control.
- Continue with metoprolol
- Patient switched to regular release Cardizem from IV Cardizem drip
-Continue to monitor on telemetry and adjust medications as needed for rate control
- Patient initiated on Eliquis now for anticoagulation. She had declined anticoagulation in the past.
-Echo from today pending
- Prior Echo with EF of 55-60%
# Hyperkalemia
-lokelma x 2
- Normalized
- Patient on combination of LETICIA inhibitor and spironolactone for unclear reason. She also has a chronic kidney disease stage IIIa. Not a candidate for Aldactone which is now stopped.
- Also would hold LETICIA inhibitor-no clear indication for LETICIA inhibitor use. Check urinalysis for albuminuria.
# CKD stage IIIa
- Creatinine 1.1, continue to monitor
- ? Etiology
- Check urine for albuminuria
#HTN
-BP stable
- Hold Benazepril
- Hold spironolactone
#. GERD
- Pantoprazole
#IVÁN
-CPAP continue
#DVT prophylaxis
-Heparin
# CODE STATUS
-full code
Total time spent on today's encounter was 52 minutes which included time spent in counseling the patient/family regarding diagnosis and treatment plan as listed above, goals of care, and symptom management. Case was discussed with nursing staff,
specialists, and care coordinators/case management. All labs and imaging personally reviewed by me. Remainder the time spent in detailed review of previous records, lab data, imaging, and other medical provider documentation.
Portions of this chart may have been created with voice recognition software. Occasional wrong word or 'sound alike' substitutions may have occurred due to the inherent limitations of voice recognition software.
Anticipated Discharge: > 48 hours
Subjective/Interval History
-
Date of Service: July 25, 2025
She is feeling racing of the heart at the current moment. Heart rate in 120s to 130s. Denies any chest pain or shortness of breath. No dizziness. No sweating.
Objective Data
-
Labs:
Laboratory Results
07/25/25
04:01
WBC 7.9
Hgb 13.6
Hct 40.8
Plt Count 267
Sodium 136
Potassium 4.9
Chloride 106
Carbon Dioxide 23
BUN 31 H
Creatinine 1.1 H
Glucose 106 H
Calcium 9.5
Vital Signs:
Vital Signs
Temp Pulse Resp BP Pulse Ox
98.2 F 139 20 121/106 95
07/25/25 07:26 07/25/25 09:31 07/25/25 07:26 07/25/25 09:31 07/25/25 07:26
I&O
07/24/25 07/25/25 07/26/25
06:59 06:59 06:59
Intake Total 480 / 480 300 / 300
Balance 480 / 480 300 / 300
Physical Exam
-
General: Comfortable
Respiratory: Non Labored Respirations; Negative Accessory Resp Muscle Use
Cardiac: S1/S2, Irregular Rhythm and Tachycardic
GI: Soft
Neuro: AO x 3
Psych: Calm; Negative Confused
Data Reviewed
-
Labs: Labs Reviewed by me
--- NOTE | 2025-07-25 14:07 | CM ---
spoke to pt in room, she is prev indep, lives with her husb in a 1 story home with 1 step toenter. she has a cpap she uses nightly. she denies any dc planning needs. plan is for dc to home when medically stable.
[2025-07-25 14:45] LABS: Urine Character Clear (Clear)
[2025-07-25] MEDS: PACERONE 400 MG PO ×2 (14:59→21:31)
--- NOTE | 2025-07-25 15:02 | CM ---
rachele kuo with pts [facility]- her copay is $116/month- pt is aware that her deductible will restart in Aug. she told me she already used to 30 day free coupon.
[2025-07-25 15:12] LABS: Urine Squamous Cell 16-20 /LPF (Few); Urine Urothelial Cell 0-2 /LPF (FEW)
[2025-07-25 15:14] LABS: Urine White Cell 30-40 /HPF (0-5)
[2025-07-25] MEDS: TYLENOL 650 MG PO (21:32)
[2025-07-26] VITALS (10 sets, daily range): BP systolic 108–140; BP diastolic 72–108; BMI 34.7
--- NOTE | 2025-07-26 03:15 | PTCARENOTE ---
Rec'd pt at change of shift. PT AAO*3, VSS, and Afib on tele monitor with HR in the 60's. Pt reports lower back pain and PRN tylenol given as ordered. Pt currently resting with call jack in reach and plan of care ongoing. NPO at midnight for
possible procedure in AM. See MAR and flowchart for full pt care and assessment.
[2025-07-26 05:43] LABS: Hematocrit 40.2 % (37.0-47.0); Hemoglobin 13.5 g/dL (12.0-16.0); Mean Corp Hgb Conc. 33.6 g/dL (33.0-37.0); Mean Corpuscular Volume 94.1 fL (81.0-99.0); Platelet Count 273 10^3/uL (130-400); Red Cell Dist. Width 11.7 % (11.5-14.5)
[2025-07-26 06:00] LABS: Blood Urea Nitrogen 28 mg/dl (7-17); Calcium 9.5 mg/dl (8.4-10.2); Carbon Dioxide 23 mmol/L (22-30); Chloride 106 mmol/L (98-107); Estimated Creatinine Clearance 54 ml/min; Glucose 123 mg/dl (70-99); Potassium 4.7 mmol/L (3.5-5.1); Sodium 136 mmol/L (135-145); eGFR 52.40
[2025-07-26] MEDS: PROTONIX 40 MG PO (08:55)
[2025-07-26] MEDS: PACERONE 400 MG PO (08:55)
[2025-07-26] MEDS: CARDIZEM 60 MG PO (08:55)
[2025-07-26] MEDS: ELIQUIS 5 MG PO (08:55)
[2025-07-26] MEDS: TOPROL XL 100 MG PO (08:55)
--- NOTE | 2025-07-26 09:35 | W.PN.HOSP.TC ---
Addendum entered and electronically signed by Pranav Goodman MD 07/27/25 08:05:
CHAZ was not noted on this admission
Original Note:
Today's Communication/Plan
-
ECV today
DC planning
Assessment / Plan
Assessment / Plan
# Afib with RVR
# History of paroxysmal fibrillation on prior ablation
- Remains with elevated heart rate
- Cardiology input noted-goal is for rate control and initiation of anticoagulation. Amiodarone added for rate control. Plan for ALICIA cardioversion today noted.
- Continue with metoprolol
- Patient switched to regular release Cardizem from IV Cardizem drip
-Continue to monitor on telemetry and adjust medications as needed for rate control
- Patient initiated on Eliquis now for anticoagulation. She had declined anticoagulation in the past.
-Echo 07/25 showed normal EF with no significant valvular heart disease
- Prior Echo with EF of 55-60%
# Hyperkalemia
-lokelma x 2
- Normalized
- Patient on combination of LETICIA inhibitor and spironolactone for unclear reason. She also has a chronic kidney disease stage IIIa. Not a candidate for Aldactone which is now stopped.
- Consider restarting ACEI if need for BP control. Albuminura noted.
# CKD stage IIIa
- Creatinine 1.1, continue to monitor
- ? Etiology
-albuminuria noted .Follow with nephrology as OP
#HTN
-BP stable
- Hold Benazepril
- Hold spironolactone
#. GERD
- Pantoprazole
#IVÁN
-CPAP continue
#DVT prophylaxis
-Heparin
# CODE STATUS
-full code
Portions of this chart may have been created with voice recognition software. Occasional wrong word or 'sound alike' substitutions may have occurred due to the inherent limitations of voice recognition software.
DC home when ok from cardiology
Anticipated Discharge: Today
Subjective/Interval History
-
Date of Service: July 26, 2025
Patient denies any palpitations of heart racing sensation. She denies any chest pain or shortness of breath today. On room air.
Denies any nausea vomiting. No fever or chills.
Objective Data
-
Labs:
Laboratory Results
07/26/25
04:44
WBC 7.9
Hgb 13.5
Hct 40.2
Plt Count 273
Sodium 136
Potassium 4.7
Chloride 106
Carbon Dioxide 23
BUN 28 H
Creatinine 1.1 H
Glucose 123 H
Calcium 9.5
Vital Signs:
Vital Signs
Temp Pulse Resp BP Pulse Ox
97.4 F 94 16 137/77 95
07/26/25 07:17 07/26/25 08:55 07/26/25 07:17 07/26/25 08:55 07/26/25 07:17
I&O
07/25/25 07/26/25 07/27/25
06:59 06:59 06:59
Intake Total 480 / 480 1020 / 1020
Balance 480 / 480 1020 / 1020
Physical Exam
-
General: No Apparent Distress
HEENT: Moist Mucous Membranes
Respiratory: Clear to Auscultation
Cardiac: S1/S2, Irregular Rhythm and Tachycardic
GI: Soft and Nontender
Musculoskeletal: No Edema
Neuro: AO x 3
Psych: Calm; Negative Confused
Data Reviewed
-
Labs: Labs Reviewed by me
--- NOTE | 2025-07-26 09:49 | PTCARENOTE ---
Pt is AOx3, no complaints of pain or discomfort. Pt is NPO for ALICIA/CV later today. Afib on tele monitor, VSS. Call jack within reach.
--- NOTE | 2025-07-26 10:19 | W.PN.CARDCBS ---
Addendum entered and electronically signed by Sully Deluca PA-C 07/26/25 11:18:
below should read chronic heart failure with improved EF, likely with combination of systolic and diastolic CHF.
Original Note:
Today's Communication / Plan
-
Await ALICIA cardioversion
If stable postprocedure may consider discharge
Would discharge on amiodarone 200 twice daily for 2 weeks and then decrease to 200 daily
Continue oral anticoagulation
Close follow-up in the office
Impression / Plan
-
PCP: Dr. Qiu
Rubber Production Machine Operator: Dr. Cuba
Impression:
Presented with palpitations, elevated HR
Paroxysmal atrial fibrillation w/ RVR
s/p successful ALICIA/CV 09/07/21
s/p PVI 01/04/22
Off OAC since 2023 per patient choice
Hyperkalemia
CM, EF previously 30-35%
Chronic HFrEF
HTN
HLD
IVÁN on CPAP
CKD 3a
Anxiety
Echo 05/06/2024: EF 55-60%, trace MR, aortic sclerosis without stenosis, estimated PAP 35 mmHg
Echo 07/25/2025: Study pending
Plan:
-Presented with palpitations, elevated HR. Found to be in recurrent atrial fibrillation.
-Started on IV cardizem gtt. Stopped overnight 07/24. HRs elevated once again and medications adjusted.
-On Cardizem 60mg QID and Toprol 100mg BID. BP borderline, patient was then started on amiodarone 400mg TID for additional rate control.
-Discussed at length and she will undergo ALICIA/CV today.
-If stable postprocedure okay for discharge home on 200 mg twice daily of amiodarone for 2 weeks and then reduce to 200 mg daily.
-Consider evaluation for ablation as an outpatient
-She will continue Eliquis 5mg BID. She is back on as of 07/24. Previously had self discontinued in 2023.
-Echo with normal LV function and mild valve regurgitation
-Hyperkalemia noted on arrival with K of 6.0. Improved 07/25, down to 4.9. Remain off spironolactone
All questions answered await procedure.
Progress Note - Rubber Production Machine Operator
Subjective
Date of Service: July 26, 2025
She denies chest pain and palpitations but feels worse when she is in A-fib.
Objective
Labs:
07/26/25 04:44
07/26/25 04:44
Labs
Hgb 13.5 g/dL (12.0-16.0) 07/26/25 04:44
Hct 40.2 % (37.0-47.0) 07/26/25 04:44
Plt Count 273 10^3/uL (130-400) 07/26/25 04:44
APTT Cancelled 07/24/25 18:40
Sodium 136 mmol/L (135-145) 07/26/25 04:44
Potassium 4.7 mmol/L (3.5-5.1) 07/26/25 04:44
BUN 28 mg/dl (7-17) H 07/26/25 04:44
Creatinine 1.1 mg/dL (0.6-1.0) H 07/26/25 04:44
Glucose 123 mg/dl (70-99) H 07/26/25 04:44
Vital Signs and I&O:
Vital Signs
Temp Pulse Resp BP Pulse Ox
97.4 F 94 16 137/77 95
07/26/25 07:17 07/26/25 08:55 07/26/25 07:17 07/26/25 08:55 07/26/25 07:17
Vital Signs
Temp Pulse Resp BP Pulse Ox
97.4 F 94 16 137/77 95
07/26/25 07:17 07/26/25 08:55 07/26/25 07:17 07/26/25 08:55 07/26/25 07:17
Intake & Output
07/24/25 07/25/25 07/26/25 07/27/25
06:59 06:59 06:59 06:59
Intake Total 480 / 480 1020 / 1020
Balance 480 / 480 1020 / 1020
Physical Exam
Physical Exam
General: Well developed, well nourished in NAD.
Heart: Non displaced PMI, irregularly irregular, no murmurs, No S3, S4, no rubs.
Lungs: Clear to auscultation bilaterally, no wheeze, rhonchi, rubs bilaterally,
normal expiratory phase.
Extremities: No clubbing, cyanosis or edema bilaterally.
Neuro: Grossly nonfocal, awake, alert and oriented x3.
--- NOTE | 2025-07-26 10:33 | PTCARENOTE ---
pt going to label stitcher for dottie/cv. report given to Abad GARCIA at bedside and updated.
--- NOTE | 2025-07-26 11:00 | PN.CDI ---
CDI
- -
CDI:
Physician Documentation Request
Admit Date: 07/23/25 14:13
Dear Doctor Rex,
Please review the following and provide your response in the progress notes.
Clinical Indicators:
The diagnosis of CHAZ was documented on 07/23 Update H&P but is not consistently noted in subsequent documentation.
- 07/23 Update H&P 'Mild CHAZ'
- Progress Notes 'CKD stage IIIa'
Laboratory Tests
07/23/25 07/24/25 07/25/25
11:31 04:14 04:01
Creatinine 1.1 H 1.2 H 1.1 H
eGFR 52.40 47.21 52.40
07/26/25
04:44
Creatinine 1.1 H
eGFR 52.40
Please clarify the following:
____ - CHAZ was present on admission and is now resolved.
____ - CHAZ was present on admission and is still being monitored, evaluated or treated
____ - CHAZ was ruled out
____ - Other
Use of terms such as suspected, likely, concern for, or probable (associated with a specific diagnosis that is being evaluated, monitored, or treated as if it exists) are acceptable and can be coded in the inpatient setting, when documented at the
time of discharge.
Thank you,
Kelsey oJnes RN
CDI Specialist
Please use your independent medical judgment in providing your response.
--- NOTE | 2025-07-26 11:08 | PN.CDI ---
CDI
- -
CDI:
Physician Documentation Request
Admit Date: 07/23/25 14:13
Dear Cardiology,
Please review the following and provide your response in the progress notes.
Clinical Indicators:
- 07/24 Cardiology consult 'Echocardiogram 05/06/2024...ejection fraction 55-60%'
- 07/25 Echo 'Estimated left ventricular ejection fraction is 55 to 60%'
- 07/26 Cardiology 'Chronic HFrEF'
Please provide further specificity regarding the most likely type and acuity of CHF you are evaluating, treating or monitoring.
Chronic HFpEF
Chronic HFimpEF
Other (please specify)
Use of terms such as suspected, likely, concern for, or probable (associated with a specific diagnosis that is being evaluated, monitored, or treated as if it exists) are acceptable and can be coded in the inpatient setting, when documented at the
time of discharge.
Thank you,
Kelsey Jones RN
CDI Specialist
Please use your independent medical judgment in providing your response.
--- NOTE | 2025-07-26 12:11 | PTCARENOTE ---
received pt back from dock or pier laborer. SR HB on tele monitor, VSS. Call jack within reach.
--- NOTE | 2025-07-26 15:42 | W.DCSUMMARY ---
Discharge Summary
Discharge Data
Date of Admission: 07/23/25
Date of Discharge: 07/26/25
-
Pending Results: No
Hospital Course
Primary diagnosis:
Paroxysmal atrial fibrillation with rapid ventricular rate status post electrical cardioversion
Hyperkalemia
Chronic kidney disease stage III AA
Secondary diagnosis:
Essential hypertension
Obstructive sleep apnea
History of chronic heart failure-previous EF 30 to 35% now recovered
Hospital course:
Patient with known to have paroxysmal atrial fibrillation and had prior PVI in 2021 and also electrical cardioversion in 2021 presented with palpitation and noted to have recurrent atrial fibrillation with RVR. Was initially treated with IV
Cardizem but continued to have A-fib and she was placed on amiodarone. Went on to have electrical cardioversion today. She is in sinus rhythm post cardioversion. She was advised to continue with amiodarone as above. Cardiology will follow her
outpatient for an ablation. She in the past had refused anticoagulation but she agreed this time so she was put on Eliquis.
There was no evidence of heart failure. Echocardiogram showed normal EF 55-60%.
On this admission she was noted to have hyperkalemia with potassium 6.0. She has chronically disease stage IIIa. She was on combination of spironolactone and LETICIA inhibitor. I did not see the role of despite the spironolactone. She was given
Lokelma with normalization of potassium. Blood pressure also stable with increased Cardizem dose and beta-millie. LETICIA inhibitor was also discontinued. She has albuminuria. If needed she can be rechallenged for LETICIA inhibitors to help with her
blood pressure albuminuria. No history of diabetes mellitus.
Consultants on board:
Cardiology-Jeb Arana
Portions of this chart may have been created with voice recognition software. Occasional wrong word or 'sound alike' substitutions may have occurred due to the inherent limitations of voice recognition software.
Discharge Plan
-
Patient Disposition: Home (Routine Discharge)
Discharge Diagnosis/Procedures: atrial fibrillation status post ALICIA/cardioversion
Diet: Regular
Activity: As tolerated
Driving Restrictions: As prior to admission
Bathing Restrictions: None
Activity Restrictions/Additional Instructions:
continue amiodarone 200mg TWICE DAILY for 2 weeks then decrease to 200mg daily as of 08/09/25!
Referrals:
Galen Cuba DO [Active, Cardiology] - 08/18/25 3:20 pm
Referral Note: Your appointment time has changed on the same day as previously scheduled with Dr. Cuba. Please call with questions
Jeb Qiu DO [Family Provider, [facility]] - in less than 1 week
Prescriptions:
New
diltiazem HCl 180 mg Capsule,Extended Release 24hr
180 mg PO DAILY Qty: 30 0RF
amiodarone [Pacerone] 200 mg Tablet
200 mg PO BID Qty: 45 0RF
Eliquis 5 mg Tablet
5 mg PO BID Qty: 60 0RF
Continued
pantoprazole 40 MG tablet,delayed release (DR/EC)
40 mg PO DAILY
loratadine 10 MG tablet
10 mg PO DAILY
metoprolol succinate 25 MG tablet extended release 24 hr
100 mg PO BID
Discontinued
Benazepril Hcl 10 MG Tablet
40 mg PO DAILY
diltiazem HCl [Cardizem] 120 mg Tablet
120 mg PO DAILY
spironolactone 12.5 MG tablet
50 mg PO DAILY
Rx Instructions:
Take spironolactone 12.5 mg (1/2 of a 25 mg tablet) once a day
Discharge Orders:
Discharge Patient (As Directed); Ordered 07/26/25
Ordered By: Pranav Goodman
Care Plan Goals
Care Plan Goals:
Problem: Readiness for enhanced knowledge related to diagnosis and treatment plan
Goal: Understand your diagnosis and treatment plan needs, including medications if applicable.
Instructions: Know your diagnosis, underlying causes and treatment plan options, including medications if applicable. Consult with your health care team to learn about your diagnosis and treatment plan, including medications if applicable.
Discharge Date and Time
Print Language: SOUTH [place]UD[place]
== END 2025-07-26 16:51 | disposition home or self-care (01) | DRG 309 ==
LOC: IVU 14:13
PROVIDERS: Internal Medicine; Internal Medicine Cardiovascular Disease; Physician Assistant; Registered Nurse; ADMITTING PHYSICIAN Internal Medicine; ATTENDING PHYSICIAN Internal Medicine; CONSULT PHYSICIAN Internal Medicine Cardiovascular Disease; EMERGENCY PHYSICIAN Emergency Medicine; FAMILY PHYSICIAN Family Medicine
PROC: 5A2204Z Restoration of Cardiac Rhythm, Single (ICD-10-PCS; 2025-07-26)
PROC: B24BZZ4 Ultrasonography of Heart with Aorta, Transesophageal (ICD-10-PCS; 2025-07-26)
DX: I48.0 Paroxysmal atrial fibrillation (principal); I13.0 Hypertensive heart and chronic kidney disease with heart failure and stage 1 through stage 4 chronic kidney disease, or unspecified chronic kidney disease; I50.42 Chronic combined systolic (congestive) and diastolic (congestive) heart failure; T50.0X5A Adverse effect of mineralocorticoids and their antagonists, initial encounter; E87.5 Hyperkalemia; N18.31 Chronic kidney disease, stage 3a; K21.9 Gastro-esophageal reflux disease without esophagitis; G47.33 Obstructive sleep apnea (adult) (pediatric); Z11.52 Encounter for screening for COVID-19; Z79.899 Other long term (current) drug therapy; Z79.01 Long term (current) use of anticoagulants
CPT/HCPCS: 71046; 80048; 80053; 80061; 81003; 81015; 82570; 82962; 83735; 83880; 84132; 84156; 85025; 85027; 85730; 87502; 87811; 92960; 93005; 93306; 93312; 93320; 93325; 96365; 96367; 96375; 99291